=== PATIENT | female | born 1945 | race Caucasian/White ===

== ENCOUNTER 2018-01-08 13:47 | Outpatient (CLI) | payer MEDICARE ==
--- NOTE | 2018-01-17 11:37 | MMO ---
BILATERAL SCREENING MAMMOGRAM: Date: 01/08/18 COMPARISON: 05/30/13, 05/04/11. HISTORY: Annual screening exam. This patient's mammogram was interpreted with the assistance of computer-aided detection. FINDINGS: The breasts are predominantly fatty replaced. There are nodular densities in both breasts. Two of the nodular densities within the right breast hav e increased slightly in size. One of these is 5-6 mm in size located in the mid outer breast. The sec ond is in the upper outer breast, measuring 8.0 mm. Both of these areas have increased in size as com pared to the previous exams. I would still favor these to most likely represent intramammary nodes. IMPRESSION: BIRADS 0: Incomplete: Need Additional Imaging Evaluation and/or Prior Mammograms for Comparison Further imaging required. In this case, diagnostic mammogram of the right breast is recommended, to b e followed by ultrasound. The facility will notify patient of need for additional imaging services. POS: [facility]
== END 2018-01-08 13:48 | disposition home or self-care (01) ==
LOC: SCSMAMMO 13:47
PROVIDERS: ATTEND Internal Medicine
DX: Z12.31 Encounter for screening mammogram for malignant neoplasm of breast (principal)
CPT/HCPCS: 77067

== ENCOUNTER 2018-01-24 14:21 | Outpatient (CLI) | payer MEDICARE ==
--- NOTE | 2018-01-24 15:23 | ULT ---
LIMITED RIGHT BREAST ULTRASOUND: Date: 01/24/18 PROVIDED CLINICAL HISTORY: Abnormal mammogram. FINDINGS: Limited sonographic interrogation of the right breast was performed in the 9 and 10 o'clock locations , in the region of mammographic concern. Lymph nodes are seen in these locations and explain the mamm ogram findings. No concerning sonographic findings are evident. IMPRESSION: BIRADS 2: Benign Finding(s) Return to annual screening mammography recommended. POS: [facility]
== END 2018-01-24 14:22 | disposition home or self-care (01) ==
LOC: BICMAMMO 14:21
PROVIDERS: ATTEND Internal Medicine
DX: R92.2 Inconclusive mammogram (principal); N63.10 Unspecified lump in the right breast, unspecified quadrant
CPT/HCPCS: 76642; 77065; G0279

== ENCOUNTER → 2020-05-21 | Day surgery (SDC) | payer MEDICARE ==
[~2020-05-21] MED LIST: Heparin 1,000 UNITS/ML VIAL ONE
--- NOTE | 2020-05-22 07:09 | SPC ---
Left upper extremity PICC placement sonographic guided HISTORY: MRSA. FINDINGS: After explaining the procedure and answering all questions, left upper extremity was preppe d and draped in usual sterile fashion. Sterile technique, buffered local anesthesia, sonographic guidance, and a 22-gauge needle were used t o carefully access the left brachial vein. Standard technique was used to place the tip of a 5 [place] single lumen PICC so that the tip lies at the level of the superior vena cava. Catheter was flushed and secured externally. Patient tolerated the procedure well and was returned in unchanged condition. Fluoroscopy time 0 seconds. IMPRESSION : Left upper extremity PICC is ready for use.
== END ==
LOC: SPEC 12:44
PROVIDERS: ATTEND Family Medicine
PROC: 02HV33Z Insertion of Infusion Device into Superior Vena Cava, Percutaneous Approach (ICD-10-PCS; principal; 2020-05-21)
DX: R50.9 Fever, unspecified (principal); B95.62 Methicillin resistant Staphylococcus aureus infection as the cause of diseases classified elsewhere
CPT/HCPCS: 36569; C1751; J1644

== ENCOUNTER → 2020-06-19 | Day surgery (SDC) | payer MEDICARE, OTHER ==
--- NOTE | 2020-06-19 13:27 | SPC ---
Exam: Leftupper extremity ultrasound guided PICC line HISTORY: TPN, IV antibiotics Exposure:0.2 minutes. 109 4 mg/sq cm FINDINGS: Lumen: Singlelumen Trim length: 45 cm Distal tip:Caval atrial junction Catheter flushes and aspirates without difficulty TECHNIQUE: Consent obtained to perform a left upper extremity PICC line with ultrasound guidance. Le ftarm was prepped and draped in a sterile fashion. 1% lidocaine, buffered with sodium bicarbonate was used for local anesthesia. Under ultrasound guidance, micropuncture needle was used to cannulate thebasilicvein. A 0.018 guidewire was advanced through the needle to level of the superior vena cava. Under fluoroscopy, the wire was further advanced into the inferior vena cava to document venous access. Wire was subsequently pulled back to thecavoatrial junction. Single lumen flushes and aspirates without difficulty. Patient tolerated the procedure well. No immediate or postprocedure com plications IMPRESSION: Successfulleftupper surgery PICC line placement with ultrasound guidance
--- NOTE | 2020-06-19 14:23 | MRI ---
MRI LUMBAR SPINE WITHOUT CONTRAST: 06/19/20 INDICATIONS: Low back pain, staph infection. Comparison made to recent MRI lumbar spine dated 05/08/20. That exam revealed fluid density in the L2-3 , L3-4 and L4-5 disc spaces. Findings were concerning for discitis. Possible developing osteomyelitis at L2-3 was raised. FINDINGS: Multilevel degenerative disc changes are again noted without interval change. Loss of disc space with prominent spurring from the lumbar vertebrae. The fluid filled in the L2-3, L3-4 and L4-5 disc spaces noted previously has resolved. There continue s to be signal abnormality in the L2 and L3 vertebrae which exhibits increased T2 and STIR signal con sistent with edema and treated osteomyelitis at L2-3 continues to be a concern. The other vertebral b odies show normal signal with no other significant edema identified. The disc bulges and central canal stenosis at multiple levels are again noted without significant eduin nge. There is no evidence of paravertebral fluid or edema. Psoas muscles appear unremarkable. There is fat ty replacement in the left psoas muscle which is stable. IMPRESSION: 1. Resolution of the disc space edema at L2-3, L3-4, and L4-5 since prior exam. This may indicat e treated discitis. There continues to be signal abnormalities involving the L2 and L3 vertebrae whic h could indicate treated or residual osteomyelitis. 2. Multilevel degenerative disc changes with posterior disc bulge/protrusion resulting in multil evel central canal and foraminal stenosis. These findings are unchanged from the prior study. POS: [facility]
== END ==
LOC: SPEC 09:52
PROVIDERS: ATTEND Family Medicine
PROC: 02HV33Z Insertion of Infusion Device into Superior Vena Cava, Percutaneous Approach (ICD-10-PCS; principal; 2020-06-19)
PROC: B548ZZA Ultrasonography of Superior Vena Cava, Guidance (ICD-10-PCS; 2020-06-19)
DX: M51.36 Other intervertebral disc degeneration, lumbar region (principal); M48.061 Spinal stenosis, lumbar region without neurogenic claudication; B95.62 Methicillin resistant Staphylococcus aureus infection as the cause of diseases classified elsewhere
CPT/HCPCS: 36569; 72148; C1751; J1644